=== PATIENT | male | born 1965 | race Caucasian/White ===

== ENCOUNTER 2017-01-28 03:29 | Observation (INO) | payer MEDICARE ==
[~2017-01-28] VITALS: Ht 175.3 cm; Wt 61.4 kg
--- NOTE | ~2017-01-28 | HEMODYNAMI ---
PATIENT:GERALD CASILLAS MEDICAL RECORD: [id number] : 65 LOCATION:D.AR D.2235 ADMISSION DATE: 01/28/17 Generatedon:01/28/201711:23 Patient name: GERALD CASILLAS Patient #: [id number] SSN: : 1965 Date of study: 01/28/2017 Page: Of Hemodynamic Procedure Report Patient Data Patient Demographics First Name: GERALD Gender: Male Last Name: SONJA : 1965 Patient #: [id number] Age: 52 year(s) Race: Unknown Additional ID: [id number] Contact details [address]: [address] [place] [address] State: [place] City: [place] Zip code: [address] Admission Admission Data Admission Date: 01/28/2017 Admission Time: 4:40 Room #: D.2235 Procedure Procedure Types Cath Procedure Peripheral Cath Diagnostic Procedure Gastric G J Tube Replacement Procedure Description Procedure Date Procedure Date: 01/28/2017 Procedure Start Time: 11:07 Procedure Staff Name Function Karen Acuña MD Ordering physician Domo Medina MD Performing Physician Shandra Hall RN Nurse Claudia Garrido RT Scrub Ricardo Joseph RT Monitor Procedure Data Cath Procedure Fluoroscopy Diagnostic fluoroscopy Total fluoroscopy Time: 1 time: 1 min min Diagnostic fluoroscopy Total fluoroscopy dose: 5 dose: 5 mGy mGy Contrast Material Contrast Material Type Amount (ml) Isovue 300 5 Hemodynamics Rest Pre Cath Intra NCS Post Cath Procedure Log Time Note 10:44:38 Ricardo Joseph RT (R) (CV) sent for patient. Start room use. 10:52:15 Time tracking: Regular hours 10:52:23 Plan of Care:Hemodynamics will remain stable., Cardiac rhythm will remain stable., Comfort level will be maintained., Respiratory function will remain adequate., Patient/ family verbilizes understanding of procedure., Procedure tolerated without complication., Recovers from procedure without complications.. 10:52:32 Patient received from Med/Surg to IR Alert and oriented. Tansferred to table in Supine position. 10:52:33 Correct patient and procedure confirmed by team. 10:52:38 Full Disclosure recording started 10:52:38 - 10:52:47 H&P Date Dictated: 01/28/2017 Within 30 days and on chart.. 10:52:58 Unable to provide pre-op teaching due to educational barrier. brain injury 10:53:03 Signed procedure consent form obtained from not obtained; Physician declared emergency. 10:53:36 Use device set IR Diagnostic 10:53:38 Sterile Angiographic Pack opened to sterile field. 10:53:38 Bag Decanter opened to sterile field. 10:53:54 Sharps counted by scrub and verified by R.N. 10:53:55 Alarms reviewed by R. N. 10:53:59 Left abdomen area was prepped with chlora-prep and draped in sterile fashion 11:02:45 Physician arrived 11:02:45 --------ALL STOP TIME OUT------ 11:02:48 Final Timeout: patient, procedure, and site verified with staff and physician. All members of the team are in agreement. 11:02:53 Left abdomen site verified by team. 11:02:59 Physical assessment completed. ASA score P 3 - A patient with severe systemic disease as per Domo Medina MD. 11:03:02 Sedation plan: IV Moderate Sedation Versed, Fentanyl 11:05:25 Procedure started. 11:08:15 Cook [facility] 260 .035 glide wire opened to sterile field. 11:08:17 GASTRO-ENTERIC FEEDING TUBE 22FR. opened to sterile field. 11:09:51 Terumo 5FR STRAIGHT 65CM glide catheter opened to sterile field. 11:15:44 Report given to Med/Surg. 11:15:47 Patient transfered to Med/Surg with Bed. 11:16:23 Procedure ended.(Physican Out) 11:17:22 Fluoroscopy time 01.00 minutes. 11:17:40 Fluoroscopy dose: 5 mGy 11:17:54 Flurop Dose total: 5 11:18:02 Contrast amount:Isovue 300 5ml. 11:18:05 Insertion/operative site no bleeding no hematoma. 11:18:14 Post Abdominal area:stable 11:18:17 Post Procedure Pulses reassessed and unchanged 11:18:18 Post procedure instruction explained to patient.Patient verbalizes understanding. 11:21:42 Procedure and supply charges have been captured, reviewed, submitted an d are correct. 11:22:01 Report given to Med/Surg. Device Usage Item Name Manufacture Quantity Catalog Hospital Part Current Min imal Lot# / Number Charge Number Stock Stock Serial# Code Sterile Cardinal 1 [id number] 5 Angiographic Health Pack Bag Decanter Microtek [id number] [id number] [id number] 5 [employer] Synference [facility] 1 [id number] 5 [id number] [facility] 260 .035 glide wire GASTRO-ENTERIC FRANCISCO 1 0210-22 [id number] 5 FEEDING TUBE 22FR. Terumo 5FR Terumo 1 [id number] 5 STRAIGHT 65CM glide catheter Signature Audit [place] Stage Time Signature Unsigned Intra-Procedure 01/28/2017 Ricardo 11:23:33 AM Jake RT (R) (CV) Signatures Monitor : Ricardo Signature : Jake RT Date : Time : [facility] [address] [place] [address]
[2017-01-28 06:43] VITALS: BP 127/85; Ht 175.3 cm; Wt 61.4 kg
[2017-01-28] MEDS ORDERED: CYCLOBENZAPRINE5 MG PEG (07:08)
[2017-01-28] MEDS ORDERED: VITAMIN D5000 UNIT PEG (07:10)
[2017-01-28] MEDS ORDERED: SENNA LAXATIVE8.6 MG PEG (07:11)
[2017-01-28] MEDS ORDERED: ACIDOPHILUS LAC1 CAP PEG (07:12)
[2017-01-28] MEDS ORDERED: ACETAMINOPHEN325 MG PEG (07:14)
[2017-01-28] MEDS ORDERED: DULCOLAX10 MG/SUPP RC (07:15)
[2017-01-28] MEDS ORDERED: ULTRAM50 MG PEG (07:16)
[2017-01-28] MEDS ORDERED: ZANTAC150 MG PEG ×2 (07:18→07:19)
--- NOTE | 2017-01-28 07:20 | NUR ---
PATIENT RECEIVED SUPINE IN BED ALERT AND RESTING QUIETLY. RESPIRATIONS EVEN AND UNLABORED. SIDE RAILS UP X2. BED IN LOW POSITION. CALL LIGHT IN REACH.
[2017-01-28] MEDS ORDERED: ATARAX SYR10 MG/5 ML PEG (07:25)
[2017-01-28] MEDS ORDERED: ATIVAN0.5 MG PEG (07:26)
[2017-01-28 07:40] VITALS: BP 123/95
--- NOTE | 2017-01-28 10:36 | NUR ---
PATIENT OFF FLOOR TO RADIOLOGY VIA BED.
--- NOTE | 2017-01-28 11:30 | NUR ---
PATIENT BACK TO FLOOR FROM RADIOLOGY VIA BED. PATIENT ALERT. NO SIGNS OF DISTRESS NOTED. SIDE RAILS UP X2. BED IN LOW POSITION. CALL LIGHT IN REACH. BOX ALARM ON.
--- NOTE | 2017-01-28 13:45 | NUR ---
TUBE FEED INITIATED PER ORDER. WILL CONTINUE TO MONITOR.
[2017-01-28 15:41] VITALS: BP 103/79
--- NOTE | 2017-01-28 16:08 | NUR ---
IV TO LEFT AC D/C WITH CATH TIP INTACT. SITE COVERED WITH GAUZE AND BANDAID.
--- NOTE | 2017-01-28 17:53 | NUR ---
ATTEMPTED TO CALL REPORT TO [facility]. NO ANSWER AT THIS TIME. WILL TRY AGAIN AT LATER TIME.
--- NOTE | 2017-01-28 18:01 | NUR ---
ATTEMPTED TO CALL [facility] TO GIVE REPORT FOR SECOND TIME. NO ANSWER. PATIENT D/C TO [facility] VIA GUARDING EMT.
--- NOTE | 2017-01-28 18:18 | NUR ---
REPORT CALLED TO CHASITY PAINTER. PERI OLEA RECEIVED REPORT.
== END 2017-01-28 18:02 ==
LOC: D.ER 03:29 → EDSEX 03:29 → D.MS 04:40 → OBSVTIME 04:40 → D.MS 18:02
PROVIDERS: ADMIT Family Medicine
DX: Z43.1 Encounter for attention to gastrostomy (principal); R53.2 Functional quadriplegia; I25.10 Atherosclerotic heart disease of native coronary artery without angina pectoris; E78.5 Hyperlipidemia, unspecified; R13.10 Dysphagia, unspecified; K21.9 Gastro-esophageal reflux disease without esophagitis; F03.90 Unspecified dementia, unspecified severity, without behavioral disturbance, psychotic disturbance, mood disturbance, and anxiety

== ENCOUNTER 2017-07-02 11:46 | Inpatient (IN) | payer MEDICARE ==
[~2017-07-02] VITALS: Ht 167.6 cm; Wt 77.7 kg
[~2017-07-02 11:46] MED LIST: ACETAMINOPHEN325 MG PEG; ACIDOPHILUS LAC1 CAP PEG; ATARAX SYR10 MG/5 ML PEG; ATIVAN0.5 MG PEG; CYCLOBENZAPRINE5 MG PEG; DULCOLAX10 MG/SUPP RC; SENNA LAXATIVE8.6 MG PEG; ULTRAM50 MG PEG; VITAMIN D5000 UNIT PEG; ZANTAC150 MG PEG
[2017-07-02 13:23] LABS: APTT 31.7 SECONDS (22.8-39.4); INR 1.38 (0.85-1.17); PROTIME 16.5 SECONDS (11.6-15.0)
[2017-07-02 13:30] LABS: ALBUMIN 2.6 g/dL (3.4-5.0); ANION GAP 6.9 mmol/L (8-16); BILIRUBIN - TOTAL 0.59 mg/dL (0.2-1.3); CALCIUM 9.5 mg/dL (8.5-10.1); CARBON DIOXIDE 35.6 mmol/L (21.0-32.0); CREATININE - SERUM 1.3 mg/dL (0.6-1.3); POTASSIUM - SERUM 4.5 mmol/L (3.5-5.1); PROTEIN - SERUM 7.3 g/dL (6.4-8.2)
[2017-07-02 13:31] LABS: APPEARANCE TURBID (CLEAR); BACTERIA MANY /hpf (NONE SEEN); BILIRUBIN NEGATIVE (NEGATIVE); COLOR YELLOW (YELLOW); EPITHELIAL CELLS 0-5 /hpf (0-5); GLUCOSE NEGATIVE (NEGATIVE); KETONE NEGATIVE (NEGATIVE); NITRITE POSITIVE (NEGATIVE); PROTEIN 1+ mg/dL (NEGATIVE); SPECIFIC GRAVITY 1.015 (1.005-1.020); UROBILINOGEN NORMAL (NORMAL); WHITE CELLS - URINE >50 /hpf (0-5)
[2017-07-02 13:32] LABS: AMORPHOUS SEDIMENT <1+ /lpf (NONE SEEN); CALCIUM OXALATE CRYSTALS 0-5 /hpf (NONE SEEN); MUCUS <1+ /lpf (NONE SEEN)
[2017-07-02 13:36] LABS: HEMATOCRIT 46.9 % (42.0-54.0); HEMOGLOBIN 14.6 g/dL (13.5-17.5); MCHC 31.1 g/dL (31.0-37.0); MCV 93.2 fL (80.0-100.0); MEAN PLATELET VOLUME 11.7 fL (7.4-10.4); PLATELET COUNT 374 10x3/uL (130-400); RBC 5.03 10x6/uL (4.20-6.10); RDW 16.7 % (11.5-14.5); WBC 30.2 10x3/uL (4.8-10.8)
[2017-07-02 14:29] LABS: LYMPHOCYTES 7 % (15-50); MONOCYTES 5 % (2-11); NEUTROPHILS 83 % (40-80); PLATELET ESTIMATE NORMAL
--- NOTE | 2017-07-02 20:23 | NUR ---
PT ARRIVED TO FLOOR FROM ER BY BED. PT NONVERBAL. BREATHING EVEN AND UNLABORED. BED IN LOW POSITION. WILL CTM.
[2017-07-02 21:04] VITALS: BP 117/74
[2017-07-02 21:25] VITALS: BP 117/74; BMI 26.0
[2017-07-03 00:52] VITALS: BP 101/96
[2017-07-03 05:21] VITALS: BP 110/58
[2017-07-03 06:58] LABS: BASOPHILS 0 % (0-2); EOSINOPHILS 0 % (0-7); HEMATOCRIT 39.9 % (42.0-54.0); HEMOGLOBIN 12.1 g/dL (13.5-17.5); IMMATURE GRANULOCYTES 0.4 % (0-5); LYMPHOCYTES 1.8 % (15-50); MCH 28.7 pg (26.0-34.0); MCHC 30.3 g/dL (31.0-37.0); MCV 94.5 fL (80.0-100.0); MONOCYTES 2.4 % (2-11); NEUTROPHILS 95.4 % (40-80); PLATELET COUNT 280 10x3/uL (130-400); RBC 4.22 10x6/uL (4.20-6.10); WBC 27.1 10x3/uL (4.8-10.8)
--- NOTE | 2017-07-03 07:15 | NUR ---
RECEIVED REPORT. ASSUMED CARE OF PATIENT. CALL LIGHT WITHIN REACH. REACH. PATIENT IS NON VERBAL. HERE FOR AM ROUNDS. RECEIVED NEW ORDER TO RESTART TUBE FEEDINGS AND WATER FLUSHES.
[2017-07-03 07:17] LABS: CALC OSMOLALITY 310 mosm/kg (275-300); CALCIUM 8.4 mg/dL (8.5-10.1); CHLORIDE - SERUM 114 mmol/L (98-107); CREATININE - SERUM 0.9 mg/dL (0.6-1.3); GLUCOSE 115 mg/dL (74-106); POTASSIUM - SERUM 3.2 mmol/L (3.5-5.1); SODIUM 150 mmol/L (136-145); UREA NITROGEN 46 mg/dL (7-18); eGFR NON AFRICAN AMERICAN > 90 mL/min (90-120)
[2017-07-03 08:00] VITALS: BP 109/60
--- NOTE | 2017-07-03 10:15 | NUR ---
BED BATH COMPLETE. CONTINUE TO AWAIT FOR WAREHOUSE CHECKER TO BRING KANGAROO PUMP TO FLOOR. NO DISTRESS. K+ PROTOCOL ADMINISTERED AT THIS TIME.
--- NOTE | 2017-07-03 11:39 | NUR ---
NO RESIDUAL. TUBE FEEDING STARTED AT THIS TIME. IV FLUIDS INFUSING AT THIS TIME. NO DISTRESS.
[2017-07-03 12:00] VITALS: BP 110/69
[2017-07-03 12:19] VITALS: Ht 167.6 cm; Wt 77.7 kg
--- NOTE | 2017-07-03 14:16 | NUR ---
RESTING IN BED WITH EYES OPEN. NO DISTRESS. IV FLUIDS INFUSING ORDERED. TOLERATING TUBE FEEDING WELL. CALL LIGHT WITHIN REACH. NO S/S DISTRESS. PATIENT IS NONVERBAL.
--- NOTE | 2017-07-03 17:35 | NUR ---
PATIENT RESTING IN BED WITH EYES OPEN. TOLERATING TUBE FEEDING WELL. IV FLUIDS INFUSING ORDERED. NO DISTRESS.
[2017-07-03 20:00] VITALS: BP 110/70
--- NOTE | 2017-07-03 20:08 | NUR ---
RESTING IN BED, IVF INFUSING NS @ 100ML/HR + PROTONIX DRIP @ 10ML/HR TO LEFT FOOT. TUBE FEED INFUSING VIA JTUBE. SEE ASSESSMENT. YOON PATENT TO BEDSIDE DRAIN BAG.
--- NOTE | 2017-07-03 21:23 | NUR ---
ABT IVP GIVEN VIA LEFT FOOT 20 G IV SITE. PT CLEAN/DRY. NOTED AXILLARY TEMP 102.2.
[2017-07-04 04:00] VITALS: BP 115/66
[2017-07-04 05:05] LABS: BASOPHILS 0 % (0-2); EOSINOPHILS 0.2 % (0-7); HEMATOCRIT 35.1 % (42.0-54.0); HEMOGLOBIN 10.6 g/dL (13.5-17.5); IMMATURE GRANULOCYTES 0.2 % (0-5); LYMPHOCYTES 3.8 % (15-50); MCH 28.6 pg (26.0-34.0); MCHC 30.2 g/dL (31.0-37.0); MCV 94.9 fL (80.0-100.0); MEAN PLATELET VOLUME 11.9 fL (7.4-10.4); NEUTROPHILS 92.8 % (40-80); RDW 16.8 % (11.5-14.5)
[2017-07-04 05:09] LABS: PLATELET COUNT 186 10x3/uL (130-400)
[2017-07-04 05:28] LABS: ALKALINE PHOSPHATASE 41 U/L (46-116); ALT (SGPT) 22 U/L (10-68); CALC OSMOLALITY 313 mosm/kg (275-300); CALCIUM 7.5 mg/dL (8.5-10.1); CARBON DIOXIDE 26.4 mmol/L (21.0-32.0); GLUCOSE 152 mg/dL (74-106); PHOSPHOROUS 1.7 mg/dL (2.5-4.9); POTASSIUM - SERUM 3.5 mmol/L (3.5-5.1); SODIUM 152 mmol/L (136-145); UREA NITROGEN 38 mg/dL (7-18)
[2017-07-04 05:45] LABS: CREATININE - SERUM 0.6 mg/dL (0.6-1.3); eGFR NON AFRICAN AMERICAN > 90 mL/min (90-120)
[2017-07-04 05:46] LABS: ALBUMIN 1.7 g/dL (3.4-5.0); CHLORIDE - SERUM 118 mmol/L (98-107); PROTEIN - SERUM 5.4 g/dL (6.4-8.2)
--- NOTE | 2017-07-04 07:00 | NUR ---
RECEIVED REPORT. ASSUMED CARE OF PATIENT. CALL LIGHT WITHIN REACH. TOLERATING TUBE FEEDING WELL. IV FLUIDS INFUSING ORDERED. NO DISTRESS.
--- NOTE | 2017-07-04 07:55 | NUR ---
CBC ORDERED TO BE REDRAWN THIS AM DUE TO RESULTS RECEIVED. DUE TO SODIUM AND CHLORIDE LEVELS INCREASING ABOVE NORMAL LEVELS, NS REDUCED FROM 100ML/HR TO 20ML/HR. PAGED.
[2017-07-04 08:00] VITALS: BP 119/74
[2017-07-04 08:20] LABS: BASOPHILS 0 % (0-2); EOSINOPHILS 0 % (0-7); HEMATOCRIT 36.7 % (42.0-54.0); HEMOGLOBIN 11.1 g/dL (13.5-17.5); IMMATURE GRANULOCYTES 0.2 % (0-5); LYMPHOCYTES 4.7 % (15-50); MCH 28.8 pg (26.0-34.0); MCHC 30.2 g/dL (31.0-37.0); MCV 95.1 fL (80.0-100.0); MEAN PLATELET VOLUME 11.2 fL (7.4-10.4); MONOCYTES 3.3 % (2-11); NEUTROPHILS 91.8 % (40-80); PLATELET COUNT 167 10x3/uL (130-400); RBC 3.86 10x6/uL (4.20-6.10); RDW 16.9 % (11.5-14.5); WBC 5.8 10x3/uL (4.8-10.8)
--- NOTE | 2017-07-04 11:47 | NUR ---
MEDICATED FOR ELEVATED TEMP AT THIS TIME. TOLERATING IV FLUIDS AND TUBE FEEDING WELL. EYES OPEN, CALL LIGHT WITHIN REACH. FREQUENT VISUAL CHECKS. NO DISTRESS.
[2017-07-04 12:00] VITALS: BP 125/75
--- NOTE | 2017-07-04 14:22 | NUR ---
TEMP 100.8. RESTING WITH EYES OPEN. NO DISTRESS. CALL LIGHT WITHIN REACH.
--- NOTE | 2017-07-04 14:35 | NUR ---
JTUBE SITE CARE. CLEANSED AND NEW DRAIN SPONGE APPLIED. DRESSING TO LEFT LATERAL THIGH/HIP AREA REMOVED. NO OPEN SORE UNDER AREA. AREA CLEANSED AND LEFT OPEN TO AIR. PATIENT TOLERATED DRESSING CARE WELL. DRESSING TO RIGHT HIP INTACT.
[2017-07-04 16:00] VITALS: BP 111/75
--- NOTE | 2017-07-04 18:01 | NUR ---
RESTING IN BED WITH EYES OPEN. TOLERATING TUBE FEEDING WELL. NO RESIDUAL. TOLERATING IV FLUIDS WELL. CALL LIGHT WITHIN REACH. NO DISTRESS.
[2017-07-04 20:00] VITALS: BP 117/72
--- NOTE | 2017-07-04 20:05 | NUR ---
RESUMED CARE OF PT, LYING IN BED RESPIRATIONS EVEN AND UNLABORED ON ROOM AIR. NETTLES TO GRAVITY. LEFT FOOT INFUSING PROTONIX @ 10 AND 1/2 NS WITH 20k AND 10ML MULTIVITAMIN @ 75. KANAGROO PUMP IS MALFUNCTIONING AT THIS TIME, FLUSHED J TUBE AT LOCKED AT THIS TIME. CALL LIGHT IN REACH. WILL CONTINUE TO MONTIOR. SEE NURSE ASSESSMENT.
--- NOTE | 2017-07-04 22:25 | NUR ---
NEW KANGAROO PUMP PROVIDED BY INDEPENDENT SALES REPRESENTATIVE. NEW PUMP CONTINUES TO MALFUNCTION SAYING SYSTEM ERROR. WILL SUSPEND TUBE FEEDINGS FOR NOW.
[2017-07-05] VITALS: BP 125/65
--- NOTE | 2017-07-05 01:48 | NUR ---
ORAL CARE PROVIDED, REPOSITONED FOR COMFORT.
[2017-07-05 04:00] VITALS: BP 125/70
[2017-07-05 05:49] LABS: BASOPHILS 0 % (0-2); EOSINOPHILS 0.5 % (0-7); HEMATOCRIT 35.7 % (42.0-54.0); HEMOGLOBIN 10.8 g/dL (13.5-17.5); IMMATURE GRANULOCYTES 0.3 % (0-5); LYMPHOCYTES 18.7 % (15-50); MCH 28.6 pg (26.0-34.0); MCHC 30.3 g/dL (31.0-37.0); MCV 94.7 fL (80.0-100.0); MONOCYTES 4.8 % (2-11); NEUTROPHILS 75.7 % (40-80); PLATELET COUNT 161 10x3/uL (130-400); RBC 3.77 10x6/uL (4.20-6.10); RDW 16.8 % (11.5-14.5)
[2017-07-05 05:57] LABS: WBC 3.7 10x3/uL (4.8-10.8)
[2017-07-05 06:23] LABS: CALC OSMOLALITY 294 mosm/kg (275-300); CALCIUM 7.3 mg/dL (8.5-10.1); CARBON DIOXIDE 26.9 mmol/L (21.0-32.0); CHLORIDE - SERUM 114 mmol/L (98-107); CREATININE - SERUM 0.4 mg/dL (0.6-1.3); GLUCOSE 101 mg/dL (74-106); MAGNESIUM - SERUM 1.8 mg/dL (1.8-2.4); PHOSPHOROUS 2.1 mg/dL (2.5-4.9); POTASSIUM - SERUM 3.8 mmol/L (3.5-5.1); SODIUM 147 mmol/L (136-145); UREA NITROGEN 21 mg/dL (7-18); eGFR NON AFRICAN AMERICAN > 90 mL/min (90-120)
--- NOTE | 2017-07-05 06:32 | NUR ---
AM MEDS PASSED, NO CHANGES FROM PREVIOUS ASSESSMENT. 2ND KANGAROO PUMP IS NOT FUNCTIONING. JTUBE FLUSHES GREAT, RESIDUAL CHECKED 1ML OUT FLUSHED WITH 60CC OF H20.
--- NOTE | 2017-07-05 07:32 | NUR ---
PT IN BED, RESP EVEN AND UNLABORED, PT NON VERBAL, CONTRACTURES NOTED TO WHOLE BODY, REDNESS AND SCABS NOTED TO LT LOWER LEG. DR. TORIBIO AT BEDSIDE TO ASSESS. CALL LIGHT IN REACH, NAD NOTED, WILL CONTINUE PLAN OF CARE.
[2017-07-05 07:58] VITALS: BP 126/86
--- NOTE | 2017-07-05 10:10 | NUR ---
PT SEEMS TO BE VERY AGITATED, GRINDING HIS TEETH, ADMINITSTERED 0.5MG OF ATIVAN, ALSO GAVE PT A BOLUS OF 2 SANTIAGO HN. ONE CAN GIVEN AT THIS TIME. PT TOLERATED FEEDING WELL.
--- NOTE | 2017-07-05 10:15 | NUR ---
CALLED [facility] AND SPOKE WITH DEBRA, INFORMED HER THAT I NEED A KANGAROO PUMP, DEBRA STATED THAT THEY ARE TRYING TO RENT SOME PUMPS AND WILL BRING ONE UP SOON THEY CAN GET ONE.
[2017-07-05 12:22] VITALS: BP 139/60
[2017-07-05 16:35] VITALS: BP 102/58
--- NOTE | 2017-07-05 21:05 | NUR ---
PT IS LAYING IN BED WITH EYES CLOSED, RESPIRATIONS EVEN AND UNLABORED. CALL LIGHT IN REACH, WILL CONTINUE PLAN OF CARE.
[2017-07-05 22:39] VITALS: BP 119/66
--- NOTE | 2017-07-06 03:18 | NUR ---
PT IS LAYING IN BED WITH EYES CLOSED, RESPIRATIONS EVEN AND UNLABORED. CALL LIGHT IN REACH, WILL CONTINUE WITH PLAN OF CARE.
[2017-07-06 05:57] LABS: BASOPHILS 0.2 % (0-2); EOSINOPHILS 4.9 % (0-7); HEMATOCRIT 31.9 % (42.0-54.0); IMMATURE GRANULOCYTES 0.4 % (0-5); MCH 28.9 pg (26.0-34.0); MCHC 31.3 g/dL (31.0-37.0); MEAN PLATELET VOLUME 11.8 fL (7.4-10.4); MONOCYTES 9.5 % (2-11); RBC 3.46 10x6/uL (4.20-6.10); RDW 16.3 % (11.5-14.5)
[2017-07-06 06:10] LABS: MCV 92.2 fL (80.0-100.0); PLATELET COUNT 127 10x3/uL (130-400); WBC 4.7 10x3/uL (4.8-10.8)
[2017-07-06 06:16] VITALS: BP 107/64
[2017-07-06 06:16] LABS: CALC OSMOLALITY 282 mosm/kg (275-300); CALCIUM 7.1 mg/dL (8.5-10.1); CARBON DIOXIDE 30.2 mmol/L (21.0-32.0); CHLORIDE - SERUM 107 mmol/L (98-107); CREATININE - SERUM 0.4 mg/dL (0.6-1.3); GLUCOSE 129 mg/dL (74-106); MAGNESIUM - SERUM 1.5 mg/dL (1.8-2.4); POTASSIUM - SERUM 3.9 mmol/L (3.5-5.1); SODIUM 140 mmol/L (136-145); UREA NITROGEN 19 mg/dL (7-18); eGFR NON AFRICAN AMERICAN > 90 mL/min (90-120)
--- NOTE | 2017-07-06 07:13 | NUR ---
PT IN BED, WITH EYES CLOSED, AROUSES TO STIMULI, LT FOOT IV INFUSING 1/2 NS+ 20KCL AT 75, PROTONIX AT10. NETTLES DRAINING DARK URINE TO GRAVITY. PT GETTING 2 SANTIAGO HN AT 50CC/HR, 44CC/Q1H FLUSH. NAD NOTED, CALL LIGHT IN REACH, WILL CONTINUE PLAN OF CARE.
[2017-07-06 07:54] VITALS: BP 104/68
--- NOTE | 2017-07-06 10:27 | NUR ---
MAG AND PHOS REPLACED PER EP. PT IN BED, GRINDING HIS TEETH BUT DOES NOT SEEM LIKE IS HAVING ANY PAIN. NAD NOTED, CALL LIGHT IN REACH, WILL CONTINUE PLAN OF CARE.
[2017-07-06 12:15] VITALS: BP 122/74
--- NOTE | 2017-07-06 14:15 | NUR ---
Nutrition follow-up: Pt NPO TwoCal HN infusing via J-tube @ 50 ml/hr Pt is tolerating TF at this time. Labs reviewed Wt: 164# RDN following.
[2017-07-06 15:30] VITALS: BP 131/70
--- NOTE | 2017-07-06 17:07 | NUR ---
PROVIDED INCONT CARE TO PT. AND PLACED A PILLOW UNDER LEFT SIDE. NETTLES EMPTIED, CALL LIGHT IN REACH, NAD NOTED.
[2017-07-06 21:12] VITALS: BP 109/66
[2017-07-07 00:48] VITALS: BP 91/57
--- NOTE | 2017-07-07 00:58 | NUR ---
PT IN BED RESTING QUIETLY. BREATHING EVEN AND UNLABORED. BED IN LOW POSITION. WILL CTM.
[2017-07-07 05:33] VITALS: BP 97/52
[2017-07-07 05:45] LABS: BASOPHILS 0.1 % (0-2); EOSINOPHILS 4.7 % (0-7); HEMOGLOBIN 10.8 g/dL (13.5-17.5); IMMATURE GRANULOCYTES 0.1 % (0-5); LYMPHOCYTES 14.7 % (15-50); MCH 28.6 pg (26.0-34.0); MCHC 31.8 g/dL (31.0-37.0); MEAN PLATELET VOLUME 13.2 fL (7.4-10.4); MONOCYTES 6.8 % (2-11); NEUTROPHILS 73.6 % (40-80); PLATELET COUNT 132 10x3/uL (130-400); RBC 3.78 10x6/uL (4.20-6.10); RDW 15.9 % (11.5-14.5)
[2017-07-07 05:51] LABS: MCV 89.9 fL (80.0-100.0)
[2017-07-07 06:04] LABS: CALC OSMOLALITY 266 mosm/kg (275-300); CARBON DIOXIDE 27.2 mmol/L (21.0-32.0); CHLORIDE - SERUM 102 mmol/L (98-107); GLUCOSE 109 mg/dL (74-106); MAGNESIUM - SERUM 1.4 mg/dL (1.8-2.4); PHOSPHOROUS 2.1 mg/dL (2.5-4.9); POTASSIUM - SERUM 4.4 mmol/L (3.5-5.1); SODIUM 132 mmol/L (136-145); UREA NITROGEN 16 mg/dL (7-18)
[2017-07-07 06:09] LABS: CREATININE - SERUM 0.2 mg/dL (0.6-1.3); eGFR NON AFRICAN AMERICAN > 90 mL/min (90-120)
[2017-07-07 07:46] VITALS: BP 97/54
--- NOTE | 2017-07-07 07:59 | NUR ---
AM ROUNDING- RECEIVED REPORT FROM HOME APPLIANCE INSTALLER NURSE DEN. PT IS IN CONTACT ISOLATION. ON ROOM AIR. NO MONITOR. IV SEEN TO LEFT UPPER ARM MIDLINE. SECOND IV SEEN TO LEFT FOOT WITH 1/2NS WITH 20K AND MULTIVITAMIN RUNNING AT 75CC. G-TUBE SEEN WITH TUBE FEEDINGS RUNNING AT 50CC (WATER FLUSHES 40CC Q1HR). NETTLES CATHETER SEEN WITH CONCENTRATED URINE. PT IS RESTING ON RIGHT SIDE WITH EYES CLOSED RESTING. PT APPEARS CONTRACTED IN ONE POSITION. WILL CONTINUE TO MONITOR AND CONTINUE WITH PLAN OF CARE.
--- NOTE | 2017-07-07 08:14 | NUR ---
SPOKE WITH MARIA L IN PHARMACY AND STATED TO HIM I HAVE THREE IV FLUIDS TO BE RAN AT SAME TIME (HOW DOCTOR PUT IT IN ORDERED). MARIA L STATES THIS NURSE CAN RUN THE CALCIUM GLUCONATE WITH MAGNESIUM AND TO RUN POTASSIUM PHOSPHATE BY ITSELF. WILL DO PHARMACIST MARIA L DIRECTS.
[2017-07-07 12:51] VITALS: BP 106/65
--- NOTE | 2017-07-07 14:33 | NUR ---
PT GRINDING GUMS AND MOANING, GAVE PT PAIN MED PER ORDER. ASSISTED AID WITH BOWEL CHANGE. BED LOW. RAILS UP TIMES 2 WILL CONT TO JEANINE.
[2017-07-07 15:48] VITALS: BP 102/70
--- NOTE | 2017-07-07 17:10 | NUR ---
PT IS CURRENTLY LAYING IN BED ON RIGHT SIDE WITH EYES OPEN. PT IS GRITTING TEETH (HAS DONE ALL SHIFT). PRIOR ON SHIFT PERI HAYWARD GAVE PT ULTRAM ORDERED THROUGH PEG TUBE WHEN SHE AND BILL HOLLEY WERE CLEANING PT UP (PT INCONTINENT OF STOOL). NO NEED AT THIS CURRENT TIME. WILL CONTINUE TO MONITOR.
[2017-07-07 21:02] VITALS: BP 106/46
--- NOTE | 2017-07-08 02:39 | NUR ---
PT IS LAYING IN BED WITH EYES CLOSED, RESPIRATIONS EVEN AND UNLABORED. CALL LIGHT IN REACH, WILL CONTINUE TO MONITOR.
[2017-07-08 03:24] VITALS: BP 91/62
[2017-07-08 06:18] LABS: BASOPHILS 0.1 % (0-2); EOSINOPHILS 4.4 % (0-7); HEMATOCRIT 33.4 % (42.0-54.0); HEMOGLOBIN 10.8 g/dL (13.5-17.5); IMMATURE GRANULOCYTES 0.3 % (0-5); LYMPHOCYTES 17.9 % (15-50); MCH 28.9 pg (26.0-34.0); MCHC 32.3 g/dL (31.0-37.0); MCV 89.3 fL (80.0-100.0); MEAN PLATELET VOLUME 12.9 fL (7.4-10.4); MONOCYTES 6.8 % (2-11); NEUTROPHILS 70.5 % (40-80); PLATELET COUNT 144 10x3/uL (130-400); RBC 3.74 10x6/uL (4.20-6.10); RDW 15.5 % (11.5-14.5); WBC 7.5 10x3/uL (4.8-10.8)
[2017-07-08 06:33] LABS: CALCIUM 7.4 mg/dL (8.5-10.1); CARBON DIOXIDE 29.6 mmol/L (21.0-32.0); CHLORIDE - SERUM 103 mmol/L (98-107); GLUCOSE 113 mg/dL (74-106); POTASSIUM - SERUM 4.2 mmol/L (3.5-5.1); SODIUM 138 mmol/L (136-145)
[2017-07-08 06:34] LABS: CALC OSMOLALITY 275 mosm/kg (275-300); CREATININE - SERUM 0.4 mg/dL (0.6-1.3); MAGNESIUM - SERUM 1.9 mg/dL (1.8-2.4); PHOSPHOROUS 2.9 mg/dL (2.5-4.9); UREA NITROGEN 11 mg/dL (7-18); eGFR NON AFRICAN AMERICAN > 90 mL/min (90-120)
[2017-07-08] MEDS ORDERED: MERREM 1 GM/NS 11 G1 IV (07:22)
[2017-07-08] MEDS ORDERED: FLORAJEN3 CAPS460 MG PO (07:24)
[2017-07-08] MEDS ORDERED: LINZESS145 MCG PO (07:24)
[2017-07-08] MEDS ORDERED: RANITIDINE H15 MG/ML PEG (07:25)
--- NOTE | 2017-07-08 07:30 | NUR ---
AM ROUNDING- RECEIVED REPORT FROM DESK ATTENDANT NURSE DEN. PT IS CURRENTLY LAYING IN BED ON RIGHT SIDE WITH EYES OPEN. PT IS NON-VERBAL. BODY APPEARS CONTRACTED AND STIFF. IN CONTACT ISOLATION FOR ESBL IN URINE PER REPORT. ON ROOM AIR. NO MONITOR. IV SEEN TO LEFT UPPER ARM MIDLINE THAT IS SALINE LOCKED. SECOND IV SEEN TO LEFT FOOT WITH 1/2NS WITH 20K+ WITH MULTIVITAMIN RUNNING AT 75CC. PROTONIX DRIP RUNNING AT 10CC. J-TUBE TO LEFT SIDE OF ABDOMEN HOOKED TO FEEDINGS (2CAL HN AT 50CC WITH 40CC WATER FLUSHES EVERY HOUR). NETTLES CATHETER SEEN WITH YELLOW URINE. NO NEED AT THIS CURRENT TIME. WILL CONTINUE TO MONITOR AND CONTINUE WITH PLAN OF CARE.
[2017-07-08 08:14] VITALS: BP 113/64
--- NOTE | 2017-07-08 10:39 | NUR ---
PT CLEANED UP WITH ASSISTANCE FROM BILL LUND. OLD DRESSING TAKEN OFF (ON BUTTOCK AREA THAT APPEARS TO BE A SCAB). MEPILEX DRESSING APPLIED TO BUTTOCK AREA FOR COMFORT. MOUTH CARE PERFORMED BY MYSELF AND BILL LUND. IV TO LEFT FOOT REMOVED WITH CATH TIP INTACT. COVERED SITE WITH 2X2 GAUZE PADS AND SECURED WITH TAPE. NEW STAT-LOCK PLACED FOR NETTLES CATHETER. NOTICED TIP OF PTS PENIS ARE IS SPLIT WHERE CATHETER IS. THERE IS NO SIGN OF IRRITATION, REDNESS, SCABS, NOR BLEEDING SEEN (APPEARS TO BE CHRONIC). CALLED [facility] AND GAVE REPORT TO ANH GOODWIN. INFORMED ANH GOODWIN THAT PT JUST HAD BED BATH AND HAS BEEN CLEANED UP. INFORMED HER THAT PT HAS LEFT UPPER ARM MIDLINE IV THAT PT WILL GO TO [facility] WITH FOR IV ANTIBIOTICS ORDERED (EXPLAINED TO CHRISTA PT WILL GET MERREM 1GM IV Q8HR). ANH GOODWIN INFORMED ABOUT GENERALIZED SCABS AND REDDENED AREA WITH SCABS TO LEFT LOWER EXTREMITY. THIS NURSE INFORMS ANH GOODWIN REGARDING PTS WOUND TO BUTTOCK AND THAT MEPILEX DRESSING APPLIED. WILL CALL AMBULANCE. PT IS UNABLE TO SIGN D/C PAPERWORK (DONE BY MARLYS ROMO, SUBSTANCE ABUSE COUNSELOR) DUE TO MENTAL STATUS. WILL CONTINUE TO MONITOR AND CONTINUE WITH PLAN OF CARE.
--- NOTE | 2017-07-08 10:50 | NUR ---
[facility] CALLED FOR AMBULANCE TRANSPORT TO [facility].
--- NOTE | 2017-07-08 11:58 | NUR ---
PT D/C VIA STRETCHER WITH [employer] TO [facility].
--- NOTE | 2017-07-09 11:03 | NUR ---
CM called and verified patient was admitted to [facility] in a Medicaid / equipment operator intermodal yard care bed.
== END 2017-07-08 11:58 | DRG 689 ==
LOC: D.ER 11:46 → D.M2 17:31
PROVIDERS: Emergency Medicine; ADMIT Family Medicine
PROC: 05HC33Z Insertion of Infusion Device into Left Basilic Vein, Percutaneous Approach (ICD-10-PCS; principal; 2017-07-06)
PROC: B54NZZA Ultrasonography of Left Upper Extremity Veins, Guidance (ICD-10-PCS; 2017-07-06)
DX: N39.0 Urinary tract infection, site not specified (principal); R53.2 Functional quadriplegia; K92.2 Gastrointestinal hemorrhage, unspecified; B96.20 Unspecified Escherichia coli [E. coli] as the cause of diseases classified elsewhere; B96.89 Other specified bacterial agents as the cause of diseases classified elsewhere; Z87.820 Personal history of traumatic brain injury; E86.0 Dehydration; E55.9 Vitamin D deficiency, unspecified; F03.90 Unspecified dementia, unspecified severity, without behavioral disturbance, psychotic disturbance, mood disturbance, and anxiety; I25.10 Atherosclerotic heart disease of native coronary artery without angina pectoris; E78.5 Hyperlipidemia, unspecified; K59.09 Other constipation; K21.9 Gastro-esophageal reflux disease without esophagitis; M24.562 Contracture, left knee; M24.561 Contracture, right knee; M24.572 Contracture, left ankle; M24.571 Contracture, right ankle; M24.575 Contracture, left foot; M24.574 Contracture, right foot

== ENCOUNTER 2018-02-11 14:42 | Emergency (ER) | payer MEDICARE ==
[~2018-02-11] VITALS: Ht 167.6 cm; Wt 86.2 kg
[~2018-02-11 14:42] MED LIST changes: +FLORAJEN3 CAPS460 MG PO; +LINZESS145 MCG PO; +MERREM 1 GM/NS 11 G1 IV; +RANITIDINE H15 MG/ML PEG
[2018-02-11 14:50] VITALS: Ht 167.6 cm; Wt 86.2 kg
[2018-02-11 16:00] LABS: BASOPHILS 0.1 % (0-2); EOSINOPHILS 0.5 % (0-7); HEMATOCRIT 41.7 % (42.0-54.0); HEMOGLOBIN 13.3 g/dL (13.5-17.5); IMMATURE GRANULOCYTES 0.2 % (0-5); MCH 28.5 pg (26.0-34.0); MCHC 31.9 g/dL (31.0-37.0); MCV 89.3 fL (80.0-100.0); MEAN PLATELET VOLUME 11.4 fL (7.4-10.4); MONOCYTES 6.3 % (2-11); NEUTROPHILS 82.9 % (40-80); RBC 4.67 10x6/uL (4.20-6.10); RDW 16.1 % (11.5-14.5)
[2018-02-11 16:21] LABS: ALBUMIN 3.1 g/dL (3.4-5.0); ALKALINE PHOSPHATASE 88 U/L (46-116); ALT (SGPT) 24 U/L (10-68); BILIRUBIN - TOTAL 0.22 mg/dL (0.2-1.3); CALC OSMOLALITY 283 mosm/kg (275-300); CALCIUM 8.9 mg/dL (8.5-10.1); CARBON DIOXIDE 34.1 mmol/L (21.0-32.0); CHLORIDE - SERUM 104 mmol/L (98-107); CREATININE - SERUM 0.5 mg/dL (0.6-1.3); GLUCOSE 100 mg/dL (74-106); PROTEIN - SERUM 7.3 g/dL (6.4-8.2); SODIUM 140 mmol/L (136-145); UREA NITROGEN 26 mg/dL (7-18); eGFR NON AFRICAN AMERICAN > 90 mL/min (90-120)
[2018-02-11 17:10] LABS: PLATELET COUNT 296 10x3/uL (130-400)
[2018-02-11 22:19] LABS: APPEARANCE TURBID (CLEAR); COLOR YELLOW (YELLOW); NITRITE POSITIVE (NEGATIVE)
[2018-02-11 22:20] LABS: BILIRUBIN NEGATIVE (NEGATIVE); GLUCOSE NEGATIVE (NEGATIVE); KETONE NEGATIVE (NEGATIVE); PROTEIN 2+ mg/dL (NEGATIVE); UROBILINOGEN NORMAL (NORMAL)
[2018-02-11 22:21] LABS: BACTERIA MANY /hpf (NONE SEEN); WHITE CELLS - URINE >50 /hpf (0-5)
[2018-02-11] MEDS ORDERED: MACROBID100 MG PO (22:32)
[2018-02-11 23:02] VITALS: BP 167/98
== END 2018-02-11 23:02 ==
LOC: D.ER 14:42
PROVIDERS: Family Medicine
DX: J69.0 Pneumonitis due to inhalation of food and vomit (principal); Z87.820 Personal history of traumatic brain injury

== ENCOUNTER 2018-04-23 16:45 | Emergency (ER) | payer MEDICARE ==
[~2018-04-23] VITALS: Ht 167.6 cm; Wt 77.3 kg
[~2018-04-23 16:45] MED LIST changes: +MACROBID100 MG PO
[2018-04-23 16:49] VITALS: BP 114/72; Ht 167.6 cm; Wt 77.3 kg
== END 2018-04-23 17:16 ==
LOC: D.ER 16:45
DX: T83.098A Other mechanical complication of other urinary catheter, initial encounter (principal); F80.89 Other developmental disorders of speech and language; F03.90 Unspecified dementia, unspecified severity, without behavioral disturbance, psychotic disturbance, mood disturbance, and anxiety; K21.9 Gastro-esophageal reflux disease without esophagitis

== ENCOUNTER 2018-12-03 18:30 | Emergency (ER) | payer MEDICARE ==
[2018-04-23 16:49] VITALS: Ht 167.6 cm; Wt 63.6 kg
[~2018-12-03] VITALS: Ht 167.6 cm; Wt 63.6 kg
[2018-12-03 21:40] VITALS: BP 107/85
== END 2018-12-03 21:41 ==
LOC: D.ER 18:30
DX: T83.098A Other mechanical complication of other urinary catheter, initial encounter (principal)

== ENCOUNTER 2019-07-06 10:12 | Inpatient (IN) | payer MEDICARE ==
[2019-07-06] VITALS (7 sets, daily range): BP systolic 100–121; BP diastolic 56–75; BMI 13.1
[~2019-07-06] VITALS: Ht 167.6 cm; Wt 38.7 kg
[2019-07-06] MEDS ORDERED: CLARITIN 10 MG10 MG PO (10:19)
[2019-07-06] MEDS ORDERED: COLACE100 MG PO (10:20)
[2019-07-06] MEDS ORDERED: LEXAPRO10 MG PO (10:21)
[2019-07-06] MEDS ORDERED: FAMOTIDINE10 MG PO (10:22)
[2019-07-06] MEDS ORDERED: OMEPRAZOLE SUSP PEG (10:23)
[2019-07-06] MEDS ORDERED: PROTONIX FOR OR40 MG PT (10:24)
[2019-07-06] MEDS ORDERED: SENNA LAXATIVE8.6 MG PO (10:25)
[2019-07-06] MEDS ORDERED: ZANAFLEX2 M1 PO (10:26)
[2019-07-06] MEDS ORDERED: VALIUM5 MG PO (10:26)
[2019-07-06] MEDS ORDERED: CREON PEG (10:28)
[2019-07-06] MEDS ORDERED: IPRAT-ALBUT 0.5-3 ML UPD (10:30)
[2019-07-06] MEDS ORDERED: CYTOTEC200 MCG PO (10:31)
[2019-07-06] MEDS ORDERED: GUAIFENESI100 MG/5 M PO (10:32)
[2019-07-06 11:14] LABS: BASOPHILS 0 % (0-2); EOSINOPHILS 0 % (0-7); HEMATOCRIT 46.7 % (42.0-54.0); LYMPHOCYTES 5.4 % (15-50); MCH 30.9 pg (26.0-34.0); MCHC 32.1 g/dL (31.0-37.0); MCV 96.3 fL (80.0-100.0); MEAN PLATELET VOLUME 10.7 fL (7.4-10.4); MONOCYTES 6.7 % (2-11); NEUTROPHILS 87.9 % (40-80); PLATELET COUNT 308 10x3/uL (130-400); RBC 4.85 10x6/uL (4.20-6.10); RDW 15.4 % (11.5-14.5); WBC 6.8 10x3/uL (4.8-10.8)
[2019-07-06 11:25] LABS: APTT 29.7 SECONDS (22.8-39.4); CALC OSMOLALITY 286 mosm/kg (275-300); CALCIUM 8.8 mg/dL (8.5-10.1); CARBON DIOXIDE 32.1 mmol/L (21.0-32.0); CHLORIDE - SERUM 102 mmol/L (98-107); CREATININE - SERUM 0.6 mg/dL (0.6-1.3); GLUCOSE 139 mg/dL (74-106); INR 1.29 (0.85-1.17); POTASSIUM - SERUM 3.4 mmol/L (3.5-5.1); PROTIME 15.5 SECONDS (11.6-15.0); SODIUM 140 mmol/L (136-145); UREA NITROGEN 30 mg/dL (7-18); eGFR NON AFRICAN AMERICAN > 90 mL/min (90-120)
[2019-07-06 11:36] LABS: ALKALINE PHOSPHATASE 105 U/L (46-116); ALT (SGPT) 25 U/L (10-68); BILIRUBIN - TOTAL 0.85 mg/dL (0.2-1.3); CKMB 0.6 U/L (0.0-3.6); CREATINE KINASE 34 UL (21-232); PROTEIN - SERUM 7.8 g/dL (6.4-8.2); TROPONIN-I < 0.017 ng/mL (0.000-0.060)
--- NOTE | 2019-07-06 11:40 | NUR ---
SPOKE WITH PT NURSE AT [facility] - SAMUEL NELSON RN - REPORTS PT SMELLED LIKE "" AND THEN BEGAN PROJECTILE VOMITING WHILE IN SHOWER. "HE ALSO HAD SOME DRAINAGE FROM THE PEG TUBE SITE." HE ALSO HAD "DIARRHEA IS WHAT WAS REPORTED TO ME" - "HE HAS JUST DECLINED A LOT OVER THE LAST FEW DAYS. "I CAN'T PUT MY FINGER ON IT BUT SOMETHING JUST ISN'T RIGHT."
--- NOTE | 2019-07-06 13:31 | MORECARE ---
CASE MANAGEMENT DISCHARGE SUMMARY PATIENT: GERALD CASILLAS UNIT: [id number] ADM DATE: 07/06/19 AGE: 54 : 65 SEX: M ROOM/BED: D.2218 AUTHOR: JON CHANDLER PHYSICIAN: REFERRING PHYSICIAN: MARGA TORIBIO MD DATE OF SERVICE: 07/06/19 Discharge Plan Patient Name: GERALD CASILLAS Facility: [facility]:[place] : 1965 Planned Disposition: Anticipated Discharge Date: Discharge Date: Expected LOS: Initial Reviewer: [email or web address] Initial Review Date: 07/06/2019 Generated: 07/06/19 2:30 pm Patient Name: GERALD CASILLAS Page [phone] at 1331 All edits/amendments must be made on the electronic document DICTATION DATE: 07/06/19 1330 LEASING REPRESENTATIVE: PATRICK 07/06/19 1330 RPT#: [id number] DC DATE: STATUS: ADM IN [facility] [address] [place] [address] END OF REPORT
--- NOTE | 2019-07-06 13:56 | NUR ---
called and updated [facility] nurse, bev, about pts admit status.
--- NOTE | 2019-07-06 22:31 | NUR ---
PATIENT LYING DOWN IN BED. 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 PATIENT HAS PEG TUBE TO HIS LEFT ABDOMEN. IV TO RIGHT THIGH, NO REDNESS OR SWELLING. ROOM AIR. BED RAILS X2. TOLD PATIENT I WILL BE BACK TO CHECK ON HIM OFTEN.
[2019-07-07 05:54] VITALS: BP 95/55
--- NOTE | 2019-07-07 09:00 | NUR ---
PT RESTING WITH EYES CLOSED RESP EVEN AND UNLABORED. CONTARACTURES NOTED TO BUE AND BLE. WITH PT TURNED AND RESPOITIONED FOR COMFORT WITH PERICARE DONE PRN. PEG TUBE INTACT TO ABDOMEN. IV TO RTL THIGH WITH NO S/S OF INFECTION/INFILTRATION WITH VIF INFUSING AT PRESCRIBED RATE.
[2019-07-07 09:45] VITALS: BP 100/55
[2019-07-07 12:40] VITALS: Ht 167.6 cm; Wt 38.7 kg
[2019-07-07 13:25] VITALS: BP 102/43
[2019-07-07 17:02] VITALS: BP 112/56
[2019-07-07 20:00] VITALS: BP 143/79
--- NOTE | 2019-07-07 22:47 | NUR ---
STARTED TUBE FEEDING PER DR ORDER. WILL MONITOR.
[2019-07-08] VITALS: BP 93/50
[2019-07-08 01:45] LABS: APPEARANCE CLOUDY (CLEAR); BILIRUBIN NEGATIVE (NEGATIVE); COLOR YELLOW (YELLOW); GLUCOSE NEGATIVE (NEGATIVE); KETONE MODERATE mg/dL (NEGATIVE); NITRITE POSITIVE (NEGATIVE); PROTEIN TRACE mg/dL (NEGATIVE); SPECIFIC GRAVITY 1.005 (1.005-1.020)
[2019-07-08 01:46] LABS: AMORPHOUS SEDIMENT <1+ /lpf (NONE SEEN); BACTERIA MODERATE /hpf (NEGATIVE); EPITHELIAL CELLS NSEEN /hpf (0-5); RED CELLS - URINE 0-5 /hpf (0-5); WHITE CELLS - URINE 25-50 /hpf (NEGATIVE)
--- NOTE | 2019-07-08 01:49 | NUR ---
PT RESTING IN BED. EYES CLOSED. NO SIGNS OF DISTRESS. BREATHING EVEN AND UNLABORED. IV SITE RT THIGH DRESSING CLEAN DRY AND INTACT. NO SIGNS OF INFECITON OR INFULTRATION. LUNG SOUNDS DIMINISHED IN LOWER LOBES. COUGH NON-PRODUCTIVE. 3LO2 NASAL CANNULA. LT SHOULDER RED AREA. BOWEL SOUNDS ACTIVEX4. LT LOWER ABD PEG TUBE. TUBE FEEDING TWOCAL HN GOING @30. CONTRACTED ARMS AND LEGS. WILL CONTINUE PLAN OF CARE. CALL LIGHT IN REACH. BED LOWERED AND LOCKED. HEAD OF BED 30 DEGREE ANGLE. BED RAILS UPX2.
--- NOTE | 2019-07-08 03:00 | NUR ---
I have reviewed this patient and I concur with the Shift Assessment completed by the Licensed Practical Nurse today this shift.
[2019-07-08 04:00] VITALS: BP 112/49
[2019-07-08 08:35] VITALS: BP 119/61
[2019-07-08 09:42] LABS: BASOPHILS 0.1 % (0-2); EOSINOPHILS 1.9 % (0-7); HEMATOCRIT 37.9 % (42.0-54.0); IMMATURE GRANULOCYTES 0.5 % (0-5); LYMPHOCYTES 9.3 % (15-50); MCH 30.1 pg (26.0-34.0); MCHC 31.1 g/dL (31.0-37.0); MCV 96.7 fL (80.0-100.0); MEAN PLATELET VOLUME 10.8 fL (7.4-10.4); MONOCYTES 7.9 % (2-11); NEUTROPHILS 80.3 % (40-80); RBC 3.92 10x6/uL (4.20-6.10); RDW 15.1 % (11.5-14.5); WBC 8.1 10x3/uL (4.8-10.8)
[2019-07-08 09:53] LABS: HEMOGLOBIN 11.8 g/dL (13.5-17.5); PLATELET COUNT 194 10x3/uL (130-400)
[2019-07-08 09:58] LABS: CALC OSMOLALITY 283 mosm/kg (275-300); CALCIUM 7.7 mg/dL (8.5-10.1); CARBON DIOXIDE 28.3 mmol/L (21.0-32.0); CHLORIDE - SERUM 107 mmol/L (98-107); GLUCOSE 100 mg/dL (74-106); SODIUM 139 mmol/L (136-145); UREA NITROGEN 30 mg/dL (7-18)
[2019-07-08 09:59] LABS: CREATININE - SERUM 0.4 mg/dL (0.6-1.3); POTASSIUM - SERUM 3.9 mmol/L (3.5-5.1); eGFR NON AFRICAN AMERICAN > 90 mL/min (90-120)
[2019-07-08 13:03] VITALS: BP 110/58
[2019-07-08 16:37] VITALS: BP 100/53
--- NOTE | 2019-07-08 18:40 | NUR ---
REMAINS WITHOUT CHANGE FROM INITIAL SHIFT ASSESSMENT.SEEMS MORE COMFORTABLE ON AIR BED.CONT PLAN OF CARE
[2019-07-08 20:00] VITALS: BP 128/74
[2019-07-09] VITALS: BP 108/58
[2019-07-09 04:00] VITALS: BP 120/69
[2019-07-09 06:01] LABS: BASOPHILS 0.1 % (0-2); EOSINOPHILS 3.7 % (0-7); HEMATOCRIT 36.9 % (42.0-54.0); HEMOGLOBIN 11.7 g/dL (13.5-17.5); IMMATURE GRANULOCYTES 0.2 % (0-5); LYMPHOCYTES 9.9 % (15-50); MCH 30.2 pg (26.0-34.0); MCHC 31.7 g/dL (31.0-37.0); MCV 95.3 fL (80.0-100.0); MEAN PLATELET VOLUME 10.5 fL (7.4-10.4); MONOCYTES 7.1 % (2-11); RBC 3.87 10x6/uL (4.20-6.10); WBC 8.2 10x3/uL (4.8-10.8)
[2019-07-09 06:24] LABS: PLATELET COUNT 273 10x3/uL (130-400)
[2019-07-09 06:27] LABS: CALC OSMOLALITY 277 mosm/kg (275-300); CALCIUM 7.3 mg/dL (8.5-10.1); CARBON DIOXIDE 29.4 mmol/L (21.0-32.0); CHLORIDE - SERUM 104 mmol/L (98-107); CREATININE - SERUM 0.4 mg/dL (0.6-1.3); GLUCOSE 94 mg/dL (74-106); MAGNESIUM - SERUM 1.6 mg/dL (1.8-2.4); PHOSPHOROUS 1.8 mg/dL (2.5-4.9); POTASSIUM - SERUM 3.8 mmol/L (3.5-5.1); SODIUM 138 mmol/L (136-145); UREA NITROGEN 18 mg/dL (7-18); eGFR NON AFRICAN AMERICAN > 90 mL/min (90-120)
[2019-07-09 08:11] VITALS: BP 100/82
--- NOTE | 2019-07-09 09:00 | NUR ---
AWAKE AND NON RESPONSIVE TO VERBAL STIMULI DUE TO OLD BRAIN INJURY. RESP. EVEN AND UNLABORED WITH O2 3. N/C. NETTLES CATH INTACT. IV TO RT. THIGH WITH IVF INFUSING AT PRESCRIBED RATE. PEG TUBE SITE INTACT WITH DRESSING CHQANGED WITH TUBE FEEDING INFUSING AT PRESCRIBED RATE. HOB UP AT 30 DEGREE ANGLE WITH NO S/S OF ASPIRATION. AIRMATTRESS INTACT WITH CONTRACTURES NOTED TO BUE AND BLE.PATIENT RECEIVED PERICARE WITH POSITIONED CHANGED.
[2019-07-09 12:37] VITALS: BP 100/42
[2019-07-09 16:33] VITALS: BP 137/64
[2019-07-09 20:35] VITALS: BP 120/82
--- NOTE | 2019-07-09 22:00 | NUR ---
GAVE PT SCHEDULED MEDS. PT INCONTINENT OF URINE. BATH GIVEN BY BOX FOLDING MACHINE OPERATOR AND TURNED. PT RESTING COMFORTABLY. COMPLETE ASSESSMENT PER FLOW-SHEET. WILL CONTINUE TO MONITOR.
[2019-07-10 01:20] VITALS: BP 120/63
[2019-07-10 05:21] VITALS: BP 120/66
[2019-07-10 05:27] LABS: BASOPHILS 0.1 % (0-2); HEMATOCRIT 34.8 % (42.0-54.0); HEMOGLOBIN 11.4 g/dL (13.5-17.5); IMMATURE GRANULOCYTES 0.5 % (0-5); LYMPHOCYTES 7.9 % (15-50); MCH 30.4 pg (26.0-34.0); MCHC 32.8 g/dL (31.0-37.0); MEAN PLATELET VOLUME 10.7 fL (7.4-10.4); MONOCYTES 8.9 % (2-11); NEUTROPHILS 81.6 % (40-80); PLATELET COUNT 251 10x3/uL (130-400); RBC 3.75 10x6/uL (4.20-6.10); RDW 14.7 % (11.5-14.5); WBC 8.1 10x3/uL (4.8-10.8)
[2019-07-10 05:37] LABS: CALC OSMOLALITY 271 mosm/kg (275-300); CALCIUM 7.5 mg/dL (8.5-10.1); CARBON DIOXIDE 27.3 mmol/L (21.0-32.0); CHLORIDE - SERUM 103 mmol/L (98-107); CREATININE - SERUM 0.4 mg/dL (0.6-1.3); GLUCOSE 110 mg/dL (74-106); MAGNESIUM - SERUM 1.9 mg/dL (1.8-2.4); POTASSIUM - SERUM 3.9 mmol/L (3.5-5.1); SODIUM 136 mmol/L (136-145); eGFR NON AFRICAN AMERICAN > 90 mL/min (90-120)
[2019-07-10 05:42] LABS: PHOSPHOROUS 3.4 mg/dL (2.5-4.9); UREA NITROGEN 10 mg/dL (7-18)
[2019-07-10 05:50] LABS: MCV 92.8 fL (80.0-100.0)
[2019-07-10 08:25] VITALS: BP 127/76
--- NOTE | 2019-07-10 08:45 | NUR ---
PATIENT IN BED WITH IV INTACT. NO COMPLAINTS OR SIGNS OF DISTRESS. PEG TUBE INFUSIONING, CALL LIGHT WITHIN REACH.
--- NOTE | 2019-07-10 13:08 | NUR ---
Nutrition follow-up: TwoCal HN infusing @ 30 ml/hr; pt tolerating at this time Wt: 85# Labs reviewed RDN following.
[2019-07-10 14:20] VITALS: BP 123/74
--- NOTE | 2019-07-10 14:46 | MORECARE ---
CASE MANAGEMENT DISCHARGE SUMMARY PATIENT: GERALD CASILLAS UNIT: [id number] ADM DATE: 07/07/19 AGE: 54 : 65 SEX: M ROOM/BED: D.2218 AUTHOR: JON CHANDLER PHYSICIAN: REFERRING PHYSICIAN: MARGA TORIBIO MD DATE OF SERVICE: 07/10/19 Discharge Plan Patient Name: GERALD CASILLAS [facility] [facility] 1965 Planned Disposition: Nursing Facility EMERALD Cert Anticipated Discharge Date: Discharge Date: Expected LOS: Initial Reviewer: [email or web address] Initial Review Date: 07/06/2019 Generated: 07/10/19 3:45 pm Comments DCP- Discharge Planning Updated by [email or web address]: Radha Cote on 07/10/19 1:[address] PATIENT IS A JAIL RESIDENT AT [facility] PATIENT IS NONVERBAL Last DP export: 07/06/19 12:31 Patient Name: GERALD CASILLAS Page [phone] at 1446 All edits/amendments must be made on the electronic document DICTATION DATE: 07/10/19 1445 RIVETING MACHINE OPERATOR AUTOMATIC: PATRICK 07/10/19 1445 RPT#: [id number] DC DATE: STATUS: ADM IN [facility] [address] [place] [address] END OF REPORT
[2019-07-10 17:23] VITALS: BP 131/79
--- NOTE | 2019-07-10 18:55 | NUR ---
PATIENT IN BED WITH IV INTACT. PEG INFUSING. PATIENT CHANGED AND REPOSITIONED BY NUT GRINDER'S. NO SIGNS OF DISTRESS. CALL LIGHT WITHIN REACH.
[2019-07-10 20:37] VITALS: BP 150/83
[2019-07-11 00:52] VITALS: BP 140/74
--- NOTE | 2019-07-11 02:16 | NUR ---
PT RESTING IN BED. EYES OPEN TO VERBAL STIMULI. PT NON-VERBAL. NO SIGNS OF DISTRESS. BREATHING EVEN AND UNLABORED. IV SITE RT THIGH DRESSING CLEAN DRY AND INTACT. NO SIGNS OF INFECTION. BOWEL SOUNDS ACTIVE. LUNG SOUNDS WHEEZING IN UPPER LOBES. BOWEL SOUNDS ACTIVE. LT LOWER ABD PEG TUBE. TWO SANTIAGO HN FEEDING GOING AT 30. PT VERY CONTRACTED ARMS AND LEGS. WILL CONTINUE PLAN OF CARE. CALL LIGHT IN REACH. BED LOWERED AND LOCKED. BED RAILS UPX2. BED ALARM ON.
--- NOTE | 2019-07-11 04:00 | NUR ---
I have reviewed this patient and I concur with the Shift Assessment completed by the Licensed Practical Nurse today this shift.
[2019-07-11 04:28] VITALS: BP 118/73
--- NOTE | 2019-07-11 08:00 | NUR ---
ASSESSMENT PER FLOW SHEET. PT IS WITHOUT DISTRESS.CALL LIGHT IN REACH
[2019-07-11] MEDS ORDERED: ROCEPHIN 1 GM/D51 G1 IV (08:24)
[2019-07-11 08:53] VITALS: BP 108/70
--- NOTE | 2019-07-11 10:54 | MORECARE ---
CASE MANAGEMENT DISCHARGE SUMMARY PATIENT: GERALD CASILLAS UNIT: [id number] ADM DATE: 07/07/19 AGE: 54 : 65 SEX: M ROOM/BED: D.2218 AUTHOR: JON CHANDLER PHYSICIAN: REFERRING PHYSICIAN: MARGA TORIBIO MD DATE OF SERVICE: 07/11/19 Discharge Plan Patient Name: GERALD [facility]ILLAS [facility] [facility] 1965 Planned Disposition: Nursing Facility EMERALD Cert Anticipated Discharge Date: Discharge Date: Expected LOS: Initial Reviewer: [email or web address] Initial Review Date: 07/06/2019 Generated: 07/11/19 11:54 am Comments DCP- Discharge Planning Updated by [email or web address]: Radha Cote on 07/10/19 1:[address] PATIENT IS A LONG TERM RESIDENT AT [facility] PATIENT IS NONVERBAL External Providers External Provider: [facility] Next Contact Date: Service Request Date: Service Type: Resolution: Reviewer: Comments: Last DP export: 07/10/19 1:45 Patient Name: GERALD CASILLAS Page [phone] at 1054 All edits/amendments must be made on the electronic document DICTATION DATE: 07/11/19 105 DIRECTOR EDUCATIONAL RADIO: PATRICK 07/11/19 1054 RPT#: [id number] DC DATE: STATUS: ADM IN [place] [address] [place] [address] END OF REPORT
--- NOTE | 2019-07-11 11:03 | MORECARE ---
CASE MANAGEMENT DISCHARGE SUMMARY PATIENT: GERALD CASILLAS UNIT: [id number] ADM DATE: 07/07/19 AGE: 54 : 65 SEX: M ROOM/BED: D.2218 AUTHOR: JON CHANDLER PHYSICIAN: REFERRING PHYSICIAN: MARGA TORIBIO MD DATE OF SERVICE: 07/11/19 Discharge Plan Patient Name: GERALD CASILLAS Facility: [facility]:[place] : 1965 Planned Disposition: Nursing Facility EMERALD Cert Anticipated Discharge Date: Discharge Date: Expected LOS: Initial Reviewer: [email or web address] Initial Review Date: 07/06/2019 Generated: 07/11/19 12:02 pm Comments DCP- Discharge Planning Updated by [email or web address]: Radha Cote on 07/11/19 9:[address] PATIENT IS DISCHARING BACK TO [facility] IN A [employer] BED VIA AMBULANCE I CALLED [facility] WITH [facility]PS TO LET HER KNOW THAT HE WAS BEING DISCHARGED LEFT MESSAGE ON HER VOICE MAIL PATIENT IS NONVERBAL DCP- Discharge Planning Updated by [email or web address]: Radha Cote on 07/10/19 1:[address] PATIENT IS A HALFWAY RESIDENT AT [facility] PATIENT IS NONVERBAL Coverage Notice Reviewer: [id number] - Radha Cote Notice Issued Date-Time: 07/11/2019 10:57 Notice Type: IM Discharge Notice Notice Delivered To: Other Relationship to Patient: Other Relationship Autopsy Assistant Name: APS: [facility] Delivery Method: PHONE - Phone Alice Days: Prior Verbal Notification: Recipient Understood Notice: Recipient Signature: Med Rec Note Co-signed by Attending: Coverage Notice Comment: LEFT MESSAGE WITH APS Last DP export: 07/11/19 9:54 Patient Name: GERALD CASILLAS Page [id number] at 1103 All edits/amendments must be made on the electronic document DICTATION DATE: 07/11/191101 ALTERATIONS TAILOR: PATRICK 07/11/191101 RPT#: [id number] DC DATE: STATUS: ADM IN [facility] [address] [place] [address] END OF REPORT
--- NOTE | 2019-07-11 11:20 | NUR ---
REPORT TO [facility],SPOKE WITH SAMUEL.
--- NOTE | 2019-07-11 12:56 | NUR ---
LEFT UNIT VIA STRETCHER FOR TRANSPORT TO [facility]
== END 2019-07-11 12:57 | disposition home or self-care (01) | DRG 640 ==
LOC: D.ER 10:12 → D.MS 12:47 → OBSVTIME 12:55 → D.MS 07-07 12:35
PROVIDERS: Emergency Medicine; ADMIT Family Medicine; ATTEND Family Medicine
DX: E86.0 Dehydration (principal); R53.2 Functional quadriplegia; N39.0 Urinary tract infection, site not specified; Z87.820 Personal history of traumatic brain injury; E87.5 Hyperkalemia; I25.10 Atherosclerotic heart disease of native coronary artery without angina pectoris; R13.10 Dysphagia, unspecified; E78.5 Hyperlipidemia, unspecified; K59.09 Other constipation; K21.9 Gastro-esophageal reflux disease without esophagitis; F01.50 Vascular dementia, unspecified severity, without behavioral disturbance, psychotic disturbance, mood disturbance, and anxiety; F41.8 Other specified anxiety disorders; K86.89 Other specified diseases of pancreas; M62.472 Contracture of muscle, left ankle and foot; E83.42 Hypomagnesemia; E83.39 Other disorders of phosphorus metabolism; B96.4 Proteus (mirabilis) (morganii) as the cause of diseases classified elsewhere

== ENCOUNTER 2019-11-29 15:00 | Emergency (ER) | payer MEDICARE ==
[~2019-11-29] VITALS: Ht 167.6 cm; Wt 59.1 kg
[~2019-11-29 15:00] MED LIST changes: +CLARITIN 10 MG10 MG PO; +COLACE100 MG PO; +CREON PEG; +CYTOTEC200 MCG PO; +FAMOTIDINE10 MG PO; +GUAIFENESI100 MG/5 M PO; +IPRAT-ALBUT 0.5-3 ML UPD; +LEXAPRO10 MG PO; +OMEPRAZOLE SUSP PEG; +PROTONIX FOR OR40 MG PT; +ROCEPHIN 1 GM/D51 G1 IV; +SENNA LAXATIVE8.6 MG PO; +VALIUM5 MG PO; +ZANAFLEX2 M1 PO
[2019-11-29 15:02] VITALS: BP 138/82; Ht 167.6 cm; Wt 59.1 kg
== END 2019-11-29 19:08 ==
LOC: D.ER 15:00
DX: K94.23 Gastrostomy malfunction (principal); K21.9 Gastro-esophageal reflux disease without esophagitis

== ENCOUNTER 2020-05-04 14:31 | Emergency (ER) | payer MEDICARE ==
[~2020-05-04] VITALS: Ht 167.6 cm; Wt 53.6 kg
[2020-05-04 14:35] VITALS: Ht 167.6 cm; Wt 53.6 kg
[2020-05-04 15:21] LABS: BASOPHILS 0.3 % (0-2); HEMATOCRIT 42.3 % (42.0-54.0); HEMOGLOBIN 13.8 g/dL (13.5-17.5); LYMPHOCYTES 20.7 % (15-50); MCH 31.1 pg (26.0-34.0); MCHC 32.6 g/dL (31.0-37.0); MCV 95.3 fL (80.0-100.0); MEAN PLATELET VOLUME 10.8 fL (7.4-10.4); MONOCYTES 10.9 % (2-11); NEUTROPHILS 66.1 % (40-80); PLATELET COUNT 273 10x3/uL (130-400); RBC 4.44 10x6/uL (4.20-6.10); WBC 6.6 10x3/uL (4.8-10.8)
[2020-05-04 15:32] LABS: INR 1.05 (0.85-1.17); PROTIME 13.7 SECONDS (11.6-15.0)
[2020-05-04 15:35] LABS: CALC OSMOLALITY 281 mosm/kg (275-300); CALCIUM 8.7 mg/dL (8.5-10.1); CHLORIDE - SERUM 102 mmol/L (98-107); CREATININE - SERUM 0.4 mg/dL (0.6-1.3); GLUCOSE 89 mg/dL (74-106); POTASSIUM - SERUM 4.1 mmol/L (3.5-5.1); SODIUM 139 mmol/L (136-145); UREA NITROGEN 26 mg/dL (7-18); eGFR NON AFRICAN AMERICAN > 90 mL/min (90-120)
[2020-05-04 15:41] LABS: ALBUMIN 3.2 g/dL (3.4-5.0); ALKALINE PHOSPHATASE 103 U/L (30-120); ALT (SGPT) 31 U/L (10-68); BILIRUBIN - TOTAL 0.34 mg/dL (0.2-1.3); PROTEIN - SERUM 6.7 g/dL (6.4-8.2)
[2020-05-04 19:15] VITALS: BP 122/62
== END 2020-05-04 18:45 | disposition other institution (70) ==
LOC: D.ER 14:31
PROVIDERS: Family Medicine
DX: K92.2 Gastrointestinal hemorrhage, unspecified (principal); R31.9 Hematuria, unspecified; K21.9 Gastro-esophageal reflux disease without esophagitis

== ENCOUNTER → 2020-09-16 17:05 | Outpatient (CLI) | payer MEDICARE ==
[2020-08-28 12:01] VITALS: BMI 19.7
[~2020-09-16 17:05] MED LIST changes: +ATARAX SYR10 MG/5 ML PO; +ATROPINE SULFA3.5 GM SL; +DIFLUCAN100 MG PO; +HYDROCODON-ACE1 EAC7 PT; +INVANZ 1 GM/NS 11 G1 IM; +LEVOFLOXACIN500 MG PT; +MACRODANTIN50 MG GT; +MAGNESIUM CITRATE PT; +MOVANTIK25 MG PT; +PROTONIX40 MG PO; -VALIUM5 MG PO; +VALIUM5 MG PT
[2020-09-16 18:10] LABS: BILIRUBIN NEGATIVE (NEGATIVE); KETONE NEGATIVE (NEGATIVE); NITRITE NEGATIVE (NEGATIVE); UROBILINOGEN NORMAL mg/dL (< 2)
[2020-09-16 18:11] LABS: BACTERIA MANY HPF (NONE SEEN); WHITE CELLS - URINE >50 HPF (0-1)
== END | disposition home or self-care (01) ==
LOC: D.LABREF 17:05
PROVIDERS: ATTEND Family Medicine
DX: Z16.12 Extended spectrum beta lactamase (ESBL) resistance (principal)

== ENCOUNTER → 2020-09-22 13:36 | Outpatient (CLI) | payer MEDICARE ==
[2020-08-28 12:01] VITALS: BMI 19.7
[2020-09-22 14:50] LABS: BASOPHILS 0.5 % (0-2); EOSINOPHILS 3.4 % (0-7); HEMATOCRIT 39.9 % (42.0-54.0); HEMOGLOBIN 12.6 g/dL (13.5-17.5); LYMPHOCYTE ABS# 1.14 10x3/uL (1.32-3.57); LYMPHOCYTES 27.4 % (15-50); MCH 28.9 pg (26.0-34.0); MCHC 31.6 g/dL (31.0-37.0); MCV 91.5 fL (80.0-100.0); MEAN PLATELET VOLUME 11.7 fL (7.4-10.4); MONOCYTES 11.3 % (2-11); NEUTROPHIL ABS# 2.39 10x3/uL (1.78-5.38); NEUTROPHILS 57.4 % (40-80); PLATELET COUNT 284 10x3/uL (130-400); RBC 4.36 10x6/uL (4.20-6.10); RDW 15.4 % (11.5-14.5); WBC 4.2 10x3/uL (4.8-10.8)
[2020-09-22 15:23] LABS: ALBUMIN 3.2 g/dL (3.4-5.0); ALKALINE PHOSPHATASE 95 U/L (30-120); ALT (SGPT) 37 U/L (10-68); BILIRUBIN - TOTAL 0.28 mg/dL (0.2-1.3); CALC OSMOLALITY 272 mosm/kg (275-300); CALCIUM 8.7 mg/dL (8.5-10.1); CARBON DIOXIDE 31.8 mmol/L (21.0-32.0); CHLORIDE - SERUM 100 mmol/L (98-107); CREATININE - SERUM 0.4 mg/dL (0.6-1.3); GLUCOSE 97 mg/dL (74-106); POTASSIUM - SERUM 4.3 mmol/L (3.5-5.1); PROTEIN - SERUM 6.5 g/dL (6.4-8.2); SODIUM 135 mmol/L (136-145); THYROID STIMULATING HORMONE 1.24 uIU/mL (0.36-3.74); TOBRAMYCIN - TROUGH 0.8 ug/mL (0.5-2.0); UREA NITROGEN 22 mg/dL (7-18); eGFR NON AFRICAN AMERICAN > 90 mL/min (90-120)
== END | disposition home or self-care (01) ==
LOC: D.LABREF 13:36
PROVIDERS: ATTEND Family Medicine
DX: Z16.12 Extended spectrum beta lactamase (ESBL) resistance (principal); Z79.2 Long term (current) use of antibiotics; B96.5 Pseudomonas (aeruginosa) (mallei) (pseudomallei) as the cause of diseases classified elsewhere

== ENCOUNTER → 2020-10-16 18:16 | Outpatient (CLI) | payer MEDICARE ==
[2020-08-28 12:01] VITALS: BMI 19.7
[2020-10-16 18:36] LABS: BILIRUBIN NEGATIVE (NEGATIVE); KETONE NEGATIVE (NEGATIVE); NITRITE POSITIVE (NEGATIVE); UROBILINOGEN NORMAL mg/dL (< 2)
[2020-10-16 18:37] LABS: BACTERIA MANY HPF (NONE SEEN); WHITE CELLS - URINE 25-50 HPF (0-1)
== END | disposition home or self-care (01) ==
LOC: D.LABREF 18:16
PROVIDERS: ATTEND Family Medicine
DX: Z16.35 Resistance to multiple antimicrobial drugs (principal)

== ENCOUNTER 2020-10-23 01:37 | Emergency (ER) | payer MEDICARE ==
[~2020-10-23] VITALS: Ht 167.6 cm; Wt 56.8 kg
[2020-10-23 01:43] VITALS: BP 125/78; Ht 167.6 cm; Wt 56.8 kg
== END 2020-10-23 02:24 ==
LOC: D.ER 01:37
DX: K94.23 Gastrostomy malfunction (principal); K21.9 Gastro-esophageal reflux disease without esophagitis; I20.0 Unstable angina